=== PATIENT | female | born 1995 | race African-American/Black ===

== ENCOUNTER → 2023-12-04 | Outpatient (REF) ==
[2023-12-07 15:26] LABS: RUBEOLA IgG ANTIBODY 64.7 AU/mL (Immune >16.4)
== END ==
LOC: M LAB 13:41
PROVIDERS: ATTEND Nurse Practitioner Adult Health
DX: Z00.00 Encounter for general adult medical examination without abnormal findings (principal)

== ENCOUNTER → 2024-04-04 | Outpatient (CLI) | payer OTHER ==
[2024-04-04 17:33] LABS: HEMATOCRIT 41.2 % (36.0-47.0); HEMOGLOBIN 13.6 g/dl (12.0-15.5); MEAN CORPUSCULAR HEMOGLOBIN 29.7 pg (27.0-33.0); PLATELET COUNT, AUTOMATED 302 10^3/uL (150-450); RED BLOOD COUNT 4.58 10^6/uL (4.00-5.40)
[2024-04-04 18:01] LABS: THYROID STIMULATING HORMONE 0.746 uIU/ML (0.55-4.78)
[2024-04-04 18:02] LABS: FREE T4 1.24 NG/DL (0.89-1.76)
== END ==
LOC: M LRY 10:35
PROVIDERS: ATTEND Physician Assistant
DX: R68.82 Decreased libido (principal)